=== PATIENT | female | born 2000 | race Caucasian/White ===

== ENCOUNTER 2024-02-09 15:27 | Emergency (ER) | payer OTHER ==
[~2024-02-09] VITALS: Ht 162.6 cm; Wt 97.0 kg
[2024-02-09 15:48] VITALS: O2SAT 98
[2024-02-09] MEDS ORDERED: AMOX1TAB16 MT (16:23)
[2024-02-09] MEDS: TETANUS, DIPHTHERIA, PERTUSSIS VAC/PF 0.5ML (>10YR OLD) IM ONE (16:41)
[2024-02-09 16:42] VITALS: BP 128/69; PULSE 85; RESP 20; TEMP 98.3
== END 2024-02-09 16:44 | disposition home or self-care (01) ==
LOC: ER 15:27
DX: S61.552A Open bite of left wrist, initial encounter (principal); W55.01XA Bitten by cat, initial encounter; Y93.89 Activity, other specified; Y92.89 Other specified places as the place of occurrence of the external cause; Y99.8 Other external cause status
CPT/HCPCS: 90471; 90715; 99283